=== PATIENT | male | born 1950 ===

== ENCOUNTER → 2018-04-05 13:27 | Outpatient (REF) | payer MEDICARE, OTHER, SELFPAY | LOC: LAB 13:27 | PROVIDERS: Visit Provider Physician Assistant | DX: L57.8 Other skin changes due to chronic exposure to nonionizing radiation (principal); L81.4 Other melanin hyperpigmentation; L82.1 Other seborrheic keratosis; L08.9 Local infection of the skin and subcutaneous tissue, unspecified; L30.9 Dermatitis, unspecified | CPT/HCPCS: 87070; 87077; 87147; 87186; 87205 ==